=== PATIENT | male | born 1960 | race Caucasian/White ===

== ENCOUNTER → 2018-08-20 | Outpatient (CLI) | payer OTHER | LOC: M.MRI 07:15 | DX: Z01.818 Encounter for other preprocedural examination (principal); M17.11 Unilateral primary osteoarthritis, right knee ==

== ENCOUNTER 2018-10-01 11:29 | Inpatient (IN) | payer OTHER ==
[2018-09-20 08:58] LABS: ABSOLUTE BASOPHILS 0.1 thou/uL (0.0-0.2); ABSOLUTE EOSINOPHILS 0.1 thou/uL (0.0-0.7); ABSOLUTE LYMPHOCYTES 1.8 thou/uL (0.8-5.3); ABSOLUTE MONOCYTES 0.5 thou/uL (0.0-1.2); ABSOLUTE NEUTROPHILS 2.7 thou/uL (1.6-8.1); BASOPHILS 1.2 %; EOSINOPHILS 1.3 %; HEMATOCRIT 44.7 % (42.0-52.0); HEMOGLOBIN 15.8 gm/dL (14.0-18.0); LYMPHOCYTES 35.2 %; MCH 30.2 pg (26.0-34.0); MCHC 35.3 g/dL (28.0-37.0); MCV 85.4 fL (80.0-100.0); MONOCYTES 10.4 %; MPV 9.1 fl. (7.2-11.1); NUCLEATED RBCS 0 /100WBC; PLATELET COUNT* 182 thou/uL (150-400); POLYS 51.9 %; RBC 5.24 mil/uL (4.50-6.00); RDW-CV 13.4 % (10.5-14.5); WBC 5.2 thou/uL (4.0-11.0)
[2018-09-20 09:07] LABS: APTT 25.9 Seconds (25.0-31.3); PROTIME 10.2 Seconds (9.20-11.50)
[2018-09-20 10:13] LABS: ESR (SEDRATE) 1 mm/hr (0-20)
[2018-09-20 10:30] LABS: ALBUMIN 3.8 g/dL (3.4-5.0); CALCIUM 9.2 mg/dL (8.5-10.1); POTASSIUM 4.4 mmol/L (3.5-5.1); TOTAL BILIRUBIN 0.5 mg/dL (<0.1-1.0); TOTAL PROTEIN 7.1 g/dL (6.4-8.2)
--- NOTE | 2018-09-20 16:37 | EKG ---
[place] [address] ELECTROCARDIOGRAM REPORT Name: RUPERT NANCE Room: [facility].#: [id number] Admission: Attend Phys: Dorian Murry DO Discharge: Date of : 58 Report #: [id number] THIS REPORT FOR: //name// [facility] Test Date: 2018-09-20 Test Time: 09:05:03 Pat Name: RUPERT NANCE Department: Room: Gender: M [employer]: [place] : 1960 Requested By: Dorian Murry Order Number: [id number] Reading MD: Rosalio Miller Measurements Intervals [place] Rate: 68 P: 59 OH: 123 QRS: -8 QRSD: 109 T: 50 QT: 401 QTc: 427 Interpretive Statements Sinus rhythm No previous ECG available for comparison Electronically Signed On 09-20-2018 16:36:48 CDT by Rosalio Miller [email or web address] <ELECTRONICALLY SIGNED> By: Rosalio Miller MD, [facility] 09/20/18 1636 0905 09 Rosalio Miller MD, FACC /EPI
[~2018-10-01] VITALS: Ht 157.5 cm; Wt 68.9 kg
--- NOTE | ~2018-10-01 | OP ---
[facility] [address] [place] [address] OPERATIVE REPORT Name: RUPERT NANCE Room: [address] IN M.R.#: [id number] Admission: 10/01/18 Attend Phys: Vamsi Dukes Discharge: Date of : 58 Report #: [id number] THIS REPORT FOR: //name// CC: Sarah Baldwin DICTATED BY: Vita Murry DO DATE OF SERVICE: 10/01/2018 PREOPERATIVE DIAGNOSIS: Right knee advanced degenerative joint disease. POSTOPERATIVE DIAGNOSIS: Right knee advanced degenerative joint disease. PROCEDURE: Right total knee arthroplasty. SURGEON: Dorian Murry DO [place] REPAIR TECHNICIAN: SARATH Cooper. A assignment desk assistant was required for this case for assistance of patient positioning, retracting, and implantation of the implants. SECOND RETREAD TECHNICIAN: Vita Murry DO THIRD RETREAD TECHNICIAN: Alessandro Duran DO ANESTHESIA: General with adductor canal block by Anesthesia. ESTIMATED BLOOD LOSS: 100 mL. SPECIMEN REMOVED: Distal femur bone cuts, sent to pathology. COMPLICATIONS: None. DISPOSITION: Stable to PACU. IMPLANTS: [employer] Journey knee implant was utilized with the following size components: 1. A bicruciate stabilized Journey II size 4 femoral component. 2. A size 4 tibial baseplate. 3. Size 3-4, 9 mm Journey II polyethylene insert. 4. A 32 mm asymmetrical all polyethylene patella. FINDINGS: Tricompartmental degenerative joint disease was found with cystic formation and sclerotic change noted to the knee. This was taken out and sent [facility] [address] [place] [address] OPERATIVE REPORT Name: RUPERT NANCE Room: [address] IN .R.#: [id number] Admission: 10/01/18 Attend Phys: Vamsi Dukes Discharge: Date of : 58 Report #: [id number] to pathology for further review. Appeared grossly to look like osteonecrosis. We will wait for the pathology report before final decision making. INDICATIONS FOR PROCEDURE: This is a pleasant 58-year-old male who has had extensive knee pain and degenerative joint disease for numerous years. He has been followed in the Orthopedic Clinic. He has failed all conservative measurements as far as weight loss, physical therapy, exercising, NSAIDs and injection goes. He has requested to have a total knee arthroplasty and went through the appropriate presurgical planning to have this done and will go to Physical Therapy afterwards. DESCRIPTION OF PROCEDURE: The patient was transferred to the operating suite and placed on the operating table in the supine position. He was given the benefit of general anesthesia. A well-padded pneumatic tourniquet was placed on the right proximal thigh. The right lower extremity was then prepped and draped in a usual sterile fashion. A timeout was taken to confirm the appropriate patient identification, operative site and procedure to be performed. All in the room were in agreement with the timeout. The procedure initially began by performing an anterior midline incision over the right knee. Dissection was carried down sharply to the level of the quadriceps tendon and the joint capsule. A new scalpel blade was then used to perform a medial parapatellar arthrotomy. The knee was flexed. Patella was everted. Infrapatellar fat pad was partially excised. A femoral guide for the Journey II system was then placed and the cuts were then made through this cutting block. Attention was then addressed to the proximal tibia where the extra length Journey guide pin was pinned into place utilizing the Journey II referencing system, referencing the medial third of the tubercle tibial crest and middle of the talus. A bone cut was made and resected utilizing the tibial cutting block. Retractors were used to protect vital structures. After the proximal tibia cut was made, the knee was brought out into extension and extension block was checked. A 9 mm extension block was noted to fit nicely. The knee was then flexed again and all cuts were then rechecked utilizing the intramedullary bone cutting block. The distal femoral cutting block was then malleted and pinned into place. Anterior, posterior and chamfer cuts were performed. The tibia was then sized appropriately with the tibial baseplate. Tibial trial tray was pinned into place in appropriate rotation and drop yair was used to confirm the rotation. The reaming guide with femoral box cut was then malleted into place. The femoral box cut was then performed to the cutting block. The femoral trial was then malleted into place. A 9 mm trial poly was then placed. The knee was taken through a range of motion. It was noted to be well balanced and have full flexion and extension. Next, electrocautery was used on the patella to denervate around the patella. The patella was then reamed using cylindrical reamers. Peg holes were then drilled. The trial patellar component was put into place and knee was then taken through all ranges of motion. The patella was noted to track very well. Trial components were then removed. The tibia was reamed and punched the tibial tray. The knee was then thoroughly irrigated [address] [address] OPERATIVE REPORT Name: RUPERT NANCE Room: [facility] IN M.R.#: [id number] Admission: 10/01/18 Attend Phys: Vamsi Dukes Discharge: Date of : 58 Report #: [id number] with pulsatile lavage. Cement was mixed on the back table. Cement was then applied to the back surface of the upper implant as well as the cut surfaces of bone. Final implants were placed including a 9 mm polyethylene insert. The knee was taken through range of motion as well as balance with a 9 mm poly. The knee was then flexed and cement was allowed to dry. A pericapsular injection was performed. The joint capsule was then closed using #1 Vicryl in a [id number] fashion, followed by 2 running Stratafix. Subcutaneous tissue was closed using 2-0 Monocryl. Final skin closure was performed with 3-0 running Stratafix and skin glue. Sterile dressings were applied. The patient was transferred to PACU in stable condition. Needle and sponge counts were correct x 2. ATTESTATION: Dr. Murry was present and scrubbed in through the entirety of the procedure. By: [id number] Murry DO /nt
[~2018-10-01 11:29] MED LIST: ALEVE220 MG PO; CO Q-10100 MG PO; CORTEF10 MG PO; CRESTOR20 MG PO; HYDROCORTISONE10 MG PO; MELATONIN3 MG PO; MULTIVITAMINS1 EAC7 PO; TRAMADOL 50 MG50 MG PO
[2018-10-01 13:01] VITALS: BP 150/92
[2018-10-01 18:00] VITALS: BP 166/82
[2018-10-01 20:20] VITALS: BP 143/78
[2018-10-02 00:07] VITALS: BP 144/79
[2018-10-02 03:33] LABS: HEMOGLOBIN 13.2 gm/dL (14.0-18.0)
[2018-10-02 04:56] VITALS: BP 123/68
[2018-10-02 07:40] VITALS: BP 129/78
[2018-10-02] MEDS ORDERED: ELIQUIS2.5 MG PO (09:47)
[2018-10-02 09:48] VITALS: BP 129/78
[2018-10-02] MEDS ORDERED: OXYCODONE HCL 55 MG PO (14:08)
--- NOTE | 2018-10-03 17:17 | PATH ---
[address] [address] PATHOLOGY RPT PROCEDURE Name: RUPERT NANCE Room: [address] IN M.R.#: [id number] Admission: 10/01/18 Date of : 58 Discharge: 10/02/18 Report #: [id number] Path Case #: [id number] [facility] Accession Number: [id number] . 01 Material submitted: . knee - BONE RIGHT KNEE. Modifiers: right . 01 Clinical history: . Right knee DJD . 02 Diagnosis: Bone right knee: - Benign bone and cartilage with severe degenerative changes. (LD:lucy; 10/03/2018) MBR/10/03/2018 . 02 Electronically signed: . Jhonatan Baer MD, Pathologist NPI- [id number] . 01 Gross description: . The specimen is received in formalin, labeled "Rupert Nance, bone right knee". Received are two segments of light baldwin bone measuring 7.0 x 5.2 x 1.1 cm in aggregate dimensions. The tibial plateau is absent. Soft tissue and meniscus are not grossly identified. The articular surfaces are smooth to slightly irregular in contour with no grossly distinct evidence of eburnation. The specimen is submitted representatively in cassette A1, following decalcification. (CAA; 10/02/2018) QAC/QAC . 02 Pathologist provided ICD-10: M17.11 . 02 CPT . 357887, [id number] Specimen Comment: A courtesy copy of this report has been sent to Specimen Comment: [phone], . Specimen Comment: Report sent to / DR HERNANDES Performed at: [address], [place] [id number] MD Sonido Chawla MD Phone: [phone] Performed at: 02 [facility] [address], [place], [place] [id number] MD Jhonatan Baer MD Phone: [phone]
== END 2018-10-02 14:46 | disposition home or self-care (01) | DRG 470 ==
LOC: M.SUR 11:29 → M.ORTHSURG 16:50 → M.TBA 16:50 → M.ORTHSURG 17:55
PROVIDERS: Orthopaedic Surgery; ADMIT Internal Medicine
PROC: 0SRC0J9 Replacement of Right Knee Joint with Synthetic Substitute, Cemented, Open Approach (ICD-10-PCS; principal; 2018-10-01)
DX: M17.11 Unilateral primary osteoarthritis, right knee (principal); D62 Acute posthemorrhagic anemia; Z79.899 Other long term (current) drug therapy; E78.5 Hyperlipidemia, unspecified; Z87.891 Personal history of nicotine dependence

== ENCOUNTER → 2020-03-30 | Outpatient (CLI) | payer OTHER ==
[~2020-03-30] MED LIST changes: +ELIQUIS2.5 MG PO; +OXYCODONE HCL 55 MG PO
== END ==
LOC: M.RAD 12:04
PROVIDERS: ATTEND Internal Medicine
DX: M19.011 Primary osteoarthritis, right shoulder (principal); M25.511 Pain in right shoulder